=== PATIENT | female | born 1955 | race Caucasian/White ===

== ENCOUNTER 2017-02-20 20:26 | Emergency (ER) | payer SELFPAY ==
[2017-02-20] MEDS: NS 0.9% 1000 ML* 2,000 ML IV ONE ×4 (20:30→22:16)
[2017-02-20] MEDS ORDERED: Succinylcholine* 20 MG/ML 10 ML VIAL ONE (20:30)
[2017-02-20] MEDS ORDERED: Etomidate* 2 MG/ML 20 ML VIAL (40 MG) ONE (20:30)
[2017-02-20] MEDS ORDERED: Tetan/Diph/Pertus SYR(Tdap)* 0.5 ML SYR(BOOSTRIX) use SYR IM ONE (20:41)
[2017-02-20] MEDS ORDERED: Succinylcholine* 20 MG/ML 10 ML VIAL IV ONE (20:43)
[2017-02-20] MEDS ORDERED: Etomidate* 2 MG/ML 10 ML VIAL IV ONE (20:43)
[2017-02-20] MEDS ORDERED: Propofol* 200 ML ONE (20:46)
[2017-02-20 20:47] LABS: Hematocrit 37 % (35-47); Hemoglobin 12.4 g/dl (12.0-16.0); Mean Corpuscular HGB Conc 34 g/dl (31-36); Mean Corpuscular Hemoglobin 32 pg (27-31); Mean Corpuscular Volume 94 fL (80-97); Mean Platelet Volume 9 um3 (7.4-10.4); Red Blood Count 3.92 10^6/ul (4.0-5.4); Red Cell Distribution Width 15 % (10.5-15); White Blood Count 8.7 10^3/ul (3.5-10.8)
[2017-02-20] MEDS ORDERED: Propofol* 100 ML IV SCH (21:00)
--- NOTE | 2017-02-20 21:00 | RAD ---
INDICATION: Endotracheal intubation COMPARISON: None TECHNIQUE: An AP portable view obtained at 2048 hours is submitted. FINDINGS: Bones/Soft Tissues: There are no acute bony findings. There is an endotracheal tube 1 cm above the fabricio. Cardiomediastinal: The cardiomediastinal silhouette is normal. Lungs: There are no infiltrates. Pleura: There are no pleural effusions. Other: None IMPRESSION: ENDOTRACHEAL TUBE POSITIONED DESCRIBED. LUNGS CLEAR.
[2017-02-20 21:02] LABS: ALT 15 U/L (7-52); Albumin 3.6 g/dL (3.2-5.2); Alkaline Phosphatase 73 U/L (34-104); BUN/Creatinine Ratio 19.2 (8-20); Blood Urea Nitrogen 14 mg/dL (6-24); CO2 Carbon Dioxide 17 mmol/L (22-32); Calcium 8.1 mg/dL (8.6-10.3); Chloride 108 mmol/L (101-111); Creatine Kinase 59 U/L (10-223); EGFR African American 103.6 (>60); EGFR Non-African American 80.5 (>60); Globulin 2.7 g/dL (2-4); Glucose 81 mg/dL (70-100); Sodium 135 mmol/L (133-145); Total Protein 6.3 g/dL (6.4-8.9)
[2017-02-20] MEDS ORDERED: ceFAZolin 1 GM VIAL(*) 1 GM in NS 0.9% 50 ML* 50 ML IVPB ONE (21:04)
[2017-02-20 21:11] LABS: Anion Gap 10 mmol/L (2-11)
--- NOTE | 2017-02-20 21:20 | RAD ---
INDICATION: Mental status change. COMPARISON: None TECHNIQUE: Noncontrast axial source images were acquired from the skull base to the vertex. FINDINGS: Ventricles/sulci: The ventricles and cisterns are normal in size and configuration for age. Brain parenchyma: There is no focal parenchymal finding, evidence of intracranial mass, or intracranial mass effect. Intracranial hemorrhage:None. Extra-axial spaces: There are no abnormal extra axial fluid collections or evidence of extra-axial mass. Calvarium: There is no calvarial fracture or other calvarial abnormality. Scalp: There is no evidence of scalp or extracalvarial soft tissue abnormality. Paranasal sinuses/mastoid: Limited views the ethmoid and maxillary antra show findings of sinusitis. The mastoid air cells are clear. Other: None. IMPRESSION: No acute intracranial findings.
[2017-02-20 21:24] LABS: Alcohol 261 mg/dL (<10)
--- NOTE | 2017-02-20 21:28 | ED ---
Complex/Multi-Sys Presentation - HPI Summary HPI Summary: Pt present by EMS unresponsive. Hx per EMS EMS called at 1935 for a + ETOH intox with self inflicted RUE wounds in suicide attempt. Per EMS, pt initially highly agitated, punching and biting at EMS/ police. Pt with arterial bleed to RUQ - difficult to control, tourniquet applied with manual pressure and traumastop. EMS called requesting orders for sedation and restraint. before meds given, pt became unresponsive. Pt remained unresponsive enroute. Per reports BP 100s systolic, HR 115, RR 12-14, sats 90. IV placed, 600ml NS in. BG 94 Per EMS - pt with h/o SI Pt has never been to this hospital No family present level 5 caveat - History Of Current Complaint Chief Complaint: EDGeneral Time Seen by Provider: 02/20/17 20:34 Hx Obtained From: EMS Hx From Patient Unobtainable Due To: Altered Mental Status Onset/Duration: Sudden Onset Timing: Constant Severity Currently: Severe Severity Initially: Severe Associated Signs And Symptoms: Positive: Decreased Responsiveness, Agitation PMH/Surg Hx/FS Hx/Imm Hx Previously Healthy: No - unknown Infectious Disease History: Yes Infectious Disease History: Denies: Traveled Outside the [place] in Last 30 Days - Family History Known Family History: Positive: Unknown - Social History Lives: With Family Alcohol Use: + ETOH today - unknown habit Hx Substance Use: No - unknown Review of Systems - ROS Summary Review of Systems Summary: level 5 caveat Positive: Other - forearm lacerations All Other Systems Reviewed And Are Negative: No Physical Exam Triage Information Reviewed: Yes Vital Signs On Initial Exam: Initial Vitals Temp Pulse Resp BP Pulse Ox 96.5 F 85 23 114/72 100 02/20/17 20:30 02/20/17 20:30 02/20/17 20:30 02/20/17 20:30 02/20/17 20:30 Vital Signs Reviewed: Yes Completion Of Physical Exam Limited Due To: Altered Mental Status Appearance: Positive: Ill-Appearing, Signs of Trauma Skin: Positive: Other - right volar forearm 5 parallel lacerations 5-10cm, most proximal with clot and arterial bleed. Controlled with tournequit 1+ radial pulse, + ulnar pulse CBT < 2 sec when tournequit released Head/Face: Positive: Normal Head/Face Inspection Eyes: Positive: EOMI, Conjunctiva Clear ENT: Positive: Pharynx normal, TMs normal Neck: Positive: Supple, No Lymphadenopathy Respiratory/Lung Sounds: Positive: Clear to Auscultation, Breath Sounds Present , Decreased Breath Sounds, Other - shallow resp Cardiovascular: Positive: RRR. Negative: Normal - right forearm aterial bleeding with tourniquet placed for hemostasis Pt with pressure bandage applied to wound, Pulses are Symmetrical in both Upper and Lower Extremities Abdomen Description: Positive: Nontender, No Organomegaly, Soft Bowel Sounds: Positive: Present Musculoskeletal: Positive: Other - pt spont ZHONG Neurological: Positive: Other - unresponsive Psychiatric: Positive: Other AVPU Assessment: Pain (Reponds To) - Fatou Coma Scale Best Eye Response: 2 - To Pain Best Motor Response: 5 - Purposeful Movement Best Verbal Response: 1 - None Glascow Coma Scale Comments: 8 Procedures - Intubation Time of Intubation: 18:20 - used glidescope + cholormetric + endtidal + b/l BS pre-oxygenated to 100% BVM Intubation Method: orotracheal Tube Size (cm): 7.5 Medications: Succinylcholine - etomidate Breath Sounds after Intubation: equal Intubation Complications: no complications Post Intubation Xray: Yes Diagnostics - Vital Signs Vital Signs Temp Pulse Resp BP Pulse Ox 02/20/17 20:30 96.5 F 85 23 114/72 100 - Laboratory Lab Results: Lab Results 02/20/17 02/20/17 02/20/17 Range/Units 20:35 20:35 20:35 WBC 8.7 (3.5-10.8) 10^3/ul RBC 3.92 L (4.0-5.4) 10^6/ul Hgb 12.4 (12.0-16.0) g/dl Hct 37 (35-47) % MCV 94 (80-97) fL MCH 32 H (27-31) pg MCHC 34 (31-36) g/dl RDW 15 (10.5-15) % Plt Count 225 (150-450) 10^3/ul MPV 9 (7.4-10.4) um3 Neut % (Auto) 44.4 (38-83) % Lymph % (Auto) 46.2 (25-47) % Caldwell % (Auto) 7.5 (1-9) % Eos % (Auto) 1.2 (0-6) % Baso % (Auto) 0.7 (0-2) % Absolute Neuts (auto) 3.9 (1.5-7.7) 10^3/ul Absolute Lymphs (auto) 4.0 (1.0-4.8) 10^3/ul Absolute Monos (auto) 0.6 (0-0.8) 10^3/ul Absolute Eos (auto) 0.1 (0-0.6) 10^3/ul Absolute Basos (auto) 0.1 (0-0.2) 10^3/ul Absolute Nucleated RBC 0.01 10^3/ul Nucleated RBC % 0.2 Sodium 135 (133-145) mmol/L Potassium TNP Chloride 108 (101-111) mmol/L Carbon Dioxide 17 L (22-32) mmol/L Anion Gap 10 (2-11) mmol/L BUN 14 (6-24) mg/dL Creatinine 0.73 (0.51-0.95) mg/dL Est GFR ( Amer) 103.6 (>60) Est GFR (Non-Af Amer) 80.5 (>60) BUN/Creatinine Ratio 19.2 (8-20) Glucose 81 (70-100) mg/dL Lactic Acid 4.8 H* (0.5-2.0) mmol/L Calcium 8.1 L (8.6-10.3) mg/dL Magnesium TNP Total Bilirubin 0.40 (0.2-1.0) mg/dL AST TNP ALT 15 (7-52) U/L Alkaline Phosphatase 73 (34-104) U/L Total Creatine Kinase 59 (10-223) U/L Troponin I 0.00 (<0.04) ng/mL Total Protein 6.3 L (6.4-8.9) g/dL Albumin 3.6 (3.2-5.2) g/dL Globulin 2.7 (2-4) g/dL Albumin/Globulin Ratio 1.3 (1-3) Serum Alcohol 261 H (<10) mg/dL Result Diagrams: 02/20/17 20:35 02/20/17 20:35 Lab Statement: Any lab studies that have been ordered have been reviewed, and results considered in the medical decision making process. - CT No standard instances CT Interpretation Completed By: Radiologist - Ordering Physician: [facility] Contre[id number] : 1955 Age: 61 Sex: F Location: EMERGENCY DEPARTMENT Exam Date: 02/20/172033 ADM Status: REG ER Order Information: CT BRAIN WO Accession Number: [id number] CPT: 99144 INDICATION: Mental status change. COMPARISON: None TECHNIQUE: Noncontrast axial source images were acquired from the skull base to the vertex. FINDINGS: Ventricles/sulci: The ventricles and cisterns are normal in size and configuration for age. Brain parenchyma: There is no focal parenchymal finding, evidence of intracranial mass , or intracranial mass effect. Intracranial hemorrhage:None. Extra-axial spaces: There are no abnormal extra axial fluid collections or evidence of extra -axial mass. Calvarium: There is no calvarial fracture or other calvarial abnormality. Scalp: There is no evidence of scalp or extracalvarial soft tissue abnormality. Paranasal sinuses/mastoid: Limited views the ethmoid and maxillary antra show findings of sinusitis. The mastoid air cells are clear. Other: None. IMPRESSION: No acute intracranial findings. <Electronically signed by Erwin Bangura MD in OV> 02/20/172115 Dictated By: Erwin Bangura MD Dictated Date /Time: 02/20/172115 Transcribed Date/Time: 02/20/172107 - EKG No standard instances Cardiac Rate: NL EKG Rhythm: Sinus Rhythm ST Segment: Normal Ectopy: None Re-Evaluation - Re-Evaluation First Eval Comment: Pt sedated on propfol. Spoke with Dr. Paty Rahman. Will give ancef. tdap. Attempted to fly pt - helicopter not flying - will transfer by XIMENA Roach for propfol Complex Multi-Symp Course/Dx Course Of Treatment: Pt unresponsive after initial responsiveness s/p self inflicted laceration to right forearm with arteial injury. Pt with tournequit RUE for hemostasis. upon arrival RR 8, sat 78 on RA. OPA placed, 2 IV, 2liters NS (total of 3 - 1 by EMS). intubated for airway protection and MS. CT brain. CXR. NG. dennison. labs. ABG. tdap. Ancef. EMS instructed to loosen tourequit as able enroute for hemostasis - Diagnoses Provider Diagnoses: Self-inflicted laceration of wrist, Arterial hemorrhage, Suicidal behavior, Intoxication - Physician Notifications Discussed Care Of Patient With: Dr. Anne Marie Rahman Time Discussed With Above Provider: 21:00 Instructed by Provider To: Transfer - [facility] ED Reason For Transfer: [place]ty [place] available [place] [facility] [place] - Critical Care Time Critical Care Time: 75-104 min Discharge - Discharge Plan Condition: Guarded Disposition: TRANS HIGHER LVL OF CARE FAC Referrals: No Primary Care Phys,NOPCP [Primary Care Provider] -
[2017-02-20 21:29] LABS: FIO2 100; Resp Rate 12; Ventilator Volume 500
[2017-02-20 21:32] LABS: PCO2 Arterial 37 mmHg (35-45)
[2017-02-20 21:57] LABS: Urine Bilirubin Negative (Negative); Urine Glucose Negative (Negative); Urine Nitrite Negative (Negative)
[2017-02-20] MEDS ORDERED: ceFAZolin 1 GM ADVAN(*) 1 GM in NS 0.9% 50 ML* 50 ML IVPB ONE (22:00)
[2017-02-20 22:09] LABS: Benzodiazepine Urine Screen None Detected (None Detect)
[2017-02-20] MEDS ORDERED: Norepinephrine 16MCG/ML IVPRE* 4,000 MCG/250 ML BAG IV ONE (22:14)
[2017-02-20 22:19] VITALS: BP 101/56
[2017-02-20] MEDS ORDERED: Norepinephrine 16MCG/ML IVPRE* 4,000 MCG/250 ML BAG IV SCH (23:00)
== END 2017-02-20 23:00 | disposition short-term general hospital (02) ==
LOC: ED 20:26
DX: S61.511A Laceration without foreign body of right wrist, initial encounter (principal); T14.91XA Suicide attempt, initial encounter; F10.129 Alcohol abuse with intoxication, unspecified; R58 Hemorrhage, not elsewhere classified; Y33.XXXA Other specified events, undetermined intent, initial encounter; Y93.9 Activity, unspecified; Y92.9 Unspecified place or not applicable
CPT/HCPCS: 31500; 36415; 36600; 70450; 71010; 80053; 80307; 80320; 81003; 82550; 82803; 83605; 84484; 85025; 90471; 90715; 93005; 94002; 96361; 99285; G0480; J0330; J0690; J2704